=== PATIENT | male | born 1975 | race Caucasian/White ===

== ENCOUNTER 2018-01-10 19:41 | Emergency (ER) | payer SELFPAY ==
[~2018-01-10] VITALS: Ht 180.3 cm; Wt 72.7 kg
[2018-01-10 19:56] VITALS: BP 114/77; Ht 180.3 cm; Wt 72.7 kg
== END 2018-01-10 20:14 | disposition left against medical advice (07) ==
LOC: D.ER 19:41
DX: M53.3 Sacrococcygeal disorders, not elsewhere classified (principal)

== ENCOUNTER 2018-06-05 18:45 | Emergency (ER) | payer SELFPAY ==
[~2018-06-05] VITALS: Ht 180.3 cm; Wt 79.5 kg
[2018-06-05 19:07] VITALS: BP 129/79; Ht 180.3 cm; Wt 79.5 kg
== END 2018-06-05 21:40 | disposition left against medical advice (07) ==
LOC: D.ER 18:45
DX: L29.9 Pruritus, unspecified (principal)

== ENCOUNTER 2018-09-05 08:11 | Outpatient (CLI) | payer MEDICAID ==
[2018-06-05 19:07] VITALS: BMI 24.4
[2018-09-05 08:43] LABS: BASOPHILS 0.7 % (0-2); EOSINOPHILS 5.9 % (0-7); HEMATOCRIT 40.7 % (42.0-54.0); HEMOGLOBIN 14.2 g/dL (13.5-17.5); IMMATURE GRANULOCYTES 0.1 % (0-5); LYMPHOCYTES 20.3 % (15-50); MCH 32.6 pg (26.0-34.0); MCHC 34.9 g/dL (31.0-37.0); MCV 93.3 fL (80.0-100.0); MEAN PLATELET VOLUME 10.3 fL (7.4-10.4); MONOCYTES 13.1 % (2-11); NEUTROPHILS 59.9 % (40-80); PLATELET COUNT 330 10x3/uL (130-400); RBC 4.36 10x6/uL (4.20-6.10); RDW 12.7 % (11.5-14.5); WBC 10.9 10x3/uL (4.8-10.8)
[2018-09-05 09:07] LABS: CALC OSMOLALITY 280 mosm/kg (275-300); CALCIUM 9.1 mg/dL (8.5-10.1); CARBON DIOXIDE 29.8 mmol/L (21.0-32.0); CHLORIDE - SERUM 105 mmol/L (98-107); CREATININE - SERUM 0.8 mg/dL (0.6-1.3); GLUCOSE 85 mg/dL (74-106); SODIUM 143 mmol/L (136-145); UREA NITROGEN 5 mg/dL (7-18); eGFR NON AFRICAN AMERICAN > 90 mL/min (90-120)
== END 2018-09-05 08:12 | disposition home or self-care (01) ==
LOC: D.PAN 08:11 → D.OPS 08:11 → EDSTATUS 09:30 → D.PAN 09:30
PROVIDERS: ATTEND Surgery
DX: L05.91 Pilonidal cyst without abscess (principal)